=== PATIENT | male | born 1975 | race American Indian/Alaskan Native ===

== ENCOUNTER 2017-02-05 00:08 | Inpatient (IN) | payer SELFPAY ==
[2017-02-05 01:56] LABS: Anion Gap 17 mmol/L; Blood Urea Nitrogen 19 mg/dL (9-20); Calcium 9.1 mg/dL (8.4-10.2); Carbon Dioxide 27 mmol/L (22-30); Glucose 88 mg/dL (75-100); Potassium 4.1 mmol/L (3.6-5.0); Sodium 139 mmol/L (137-145)
[2017-02-05 02:13] LABS: Basophils % (Auto) 0.5 % (0.0-1.8); Eosinophils % (Auto) 2.2 % (0.0-4.3); Hematocrit 44.8 % (35.5-45.6); Hemoglobin 14.9 gm/dl (11.8-15.2); Mean Corpuscular HGB Conc 33 % (32-34); Mean Corpuscular Hemoglobin 30 pg (28-32); Mean Corpuscular Volume 89 fl (84-94); Platelet Count 177 K/mm3 (140-440); Red Blood Count 5.01 M/mm3 (3.65-5.03); Red Cell Distribution Width 15.4 % (13.2-15.2); White Blood Count 4.2 K/mm3 (4.5-11.0)
[2017-02-05 06:50] LABS: Bilirubin,Urine NEG (Negative); Blood,Urine NEG (Negative); Ketones,Urine TR mg/dL (Negative); Leukocyte Esterase,Urine NEG (Negative); Mucus,Urine 2+ /HPF; Nitrite,Urine NEG (Negative); Protein,Urine <15 mg/dL mg/dL (Negative); Urobilinogen,Urine < 2.0 mg/dL (<2.0)
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
[2017-02-05] MEDS ORDERED: BABY ASPIRIN PO ONE (09:19)
--- NOTE | 2017-02-05 09:39 | XRay Report ---
ROUTINE CHEST, TWO VIEWS: Chest pain. PA and lateral views demonstrate the heart and mediastinal contour to be of normal size and shape. The lungs are clear and fully expanded and the soft tissues and bony structures are normal. IMPRESSION: Normal study.
[2017-02-05] MEDS ORDERED: TYLENOL PO PRN (10:22)
[2017-02-05] MEDS ORDERED: MORPHINE IV PRN (10:22)
[2017-02-05] MEDS ORDERED: DULCOLAX PR PRN (10:22)
[2017-02-05] MEDS ORDERED: ZOFRAN IM PRN (10:25)
[2017-02-05] MEDS ORDERED: NITROSTAT SL PRN (10:26)
--- NOTE | 2017-02-05 10:55 | Admit Criteria Form ---
Admission Criteria Documentation: CARDIOLOGY GRG Clinical Indications for Admission to Inpatient Care ( Place 'X' for any and all applicable criteria): Hospital admission is needed for appropriate care of the patient because of ANY ONE of the following (1): [ ] I. Hemodynamic instability as indicated by ALL of the following (1)(2)(3) (4)(5) [ ]a) Vital signs or other findings not as expected for chronic patient condition or baseline [ ]b) Instability indicated by ANY ONE of the following: [ ]i) Hypotension [ ]ii) Symptomatic Tachycardia unresponsive to treatment ( e.g., analgesia, fluids, sedation as indicated) [ ]iii) Inadequate perfusion indicated by ANY ONE of the following: [ ] 1) Lactic acidosis (> 2 mmol/L) [ ] 2) New abnormal capillary refill (> 3 seconds) [ ] 3) Reduced urine output [ ] 4) New altered mental status [ ]iv) Orthostatic vital sign changes unresponsive to treatment (e.g., fluids) [ ]v) IV inotropic or vasopressor medication required to maintain adequate blood pressure or perfusion [ ] II. Severe heart failure as indicated by ANY ONE of the following(17)(18) [ ]a) Respiratory distress [ ]b) Hypotension [ ]c) Anasarca (refractory to outpatient therapy) [ ]d) Cardiac arrhythmias of immediate concern [ ]e) Myocardial ischemia [ ] III. Cardiac arrhythmias or findings of immediate concern indicated by ANY ONE of the following (19)(20): [ ] a) Heart rhythms that are inherently dangerous or unstable indicated by ANY ONE of the following (21)(22)(23): [ ] i) Resuscitated ventricular fibrillation or cardiac arrest [ ] ii) Ventricular escape rhythm [ ] iii) Sustained ventricular tachycardia (30 seconds or more of ventricular rhythm at greater than 100 beats per minute) [ ] iv) Nonsustained ventricular tachycardia and ANY ONE of the following: [ ] 1) Suspected cardiac ischemia as cause or consequence of ventricular tachycardia [ ] 2) In setting of acute myocarditis [ ] b) Unstable cardiac conduction defects indicated by ANY ONE of the following(23)(24)(25) [ ] i) Type II second-degree atrioventricular block [ ]ii) Third-degree atrioventricular block [ ]iii) New-onset left bundle branch block with suspected myocardial ischemia [ ]c) Any heart rhythm and ANY ONE of the following (21)(22)(26)(27) (28) [ ] i) Continuous long-term ECG monitoring needed (e.g., initiation of drug requiring monitoring for more than 24 hours) [ ] ii) Patient has automatic implanted cardioverter defibrillator that is repeatedly firing, malfunctioning, or in need of immediate adjustment of settings beyond the scope of ambulatory or observation care [ ]d) Heart rhythms of concern due to ANY ONE of the following: [ ] i) Hypotension [ ] ii) Respiratory distress [ ] iii) Association with other significant symptoms (e.g., bradycardia with syncope or ongoing dizziness, supraventricular tachycardia with chest pain (14)(15)(17) [ ] IV. Monitoring for cardiac contusion beyond the scope of observation care needed [A](30)(31)(32) [ ] V. Surgical or device complication (e.g., valve replacement complication , pacemaker dysfunction) (35)(41)(44)(45)(46) [ ] . Inpatient palliative care needed. [B](49) Also use Inpatient Palliative Care Criteria [ ] VII. Nonbacterial thrombotic (marantic) endocarditis (36)(43)(47)(48) [X] VIII. Cardiology condition, symptom, or finding for which emergency and observation care has failed or are not considered appropriate. [ ] IX. Acute valvular disease requiring inpatient as indicated by ANY ONE of the following (41) [ ]a) Acute valvular regurgitation (42) [ ]b) Noninfectious valvulitis (43) [ ]c) Obstructive valve thrombosis [ ]d) Paravalvular leak [ ]e) Other significant valvular disorder remaining after emergency or observation level of care (as appropriate) [ ]X. Pericardial disease requiring inpatient treatment as indicated by ANY ONE of the following (33)(34)(35)(36)(37) [ ]a) Suspected tamponade (38)(39)(40) [ ]b) Hemopericardium [ ]c) Other significant pericardial disorder remaining after emergency or observation level of care (as appropriate) [ ] XI. Cardiac ischemia beyond scope of emergency and observation care. [ ] XII. Hypertension requiring inpatient treatment as indicated by ANY ONE of the following (6)(7)(8) [ ]a) SBP greater than 220 mm Hg or DBP greater than 120 mmHg despite treatment [ ]b) SBP greater than 140 mm Hg or DBP greater than 100 mm Hg with evidence of acute end organ damage as indicated by ANY ONE of the following [ ] i) Altered mental status [ ] ii) Acute renal failure as indicated by new onset of ANY ONE of the following (9)(10)(11)(12)(13) [ ]1) 3-fold rise in serum creatinine from baseline [ ]2) Serum creatinine greater than 4 mg/dL ( 354 micromoles/L) with acute rise greater than 0.5 mg/dL (44.2 micromoles/L) [ ]3) Reduction of more than 75% in estimated glomerular filtration rate from baseline [ ]4) Estimated glomerular filtration rate less than 35 mL/min/1.73m2 (0.59 mL/sec/1.73m2) in child up to 18 years of age [ ]5) Cessation of urine output indicated by ALL of the following [ ]A. Adequate volume status [ ]B. Inadequate urine output as indicated by ANY ONE of the following [ ]a. Urine output less than 0.3 mL/kg/hr for 24 hours [ ]b. Anuria (urine output less than 0.1 mL/kg/hr) for 12 hours [ ] iii) Aortic dissection [ ] iv) Myocardial Ischemia [ ] v) Left ventricular heart failure [ ]vi) Retinal Hemorrhage [ ]vii) Other significant finding [ ]c) Hypertension in child requiring inpatient treatment as indicated by ALL of the following(14)(15)(16) [ ] i) Outpatient treatment not effective, not available, or not appropriate [ ]ii) SBP or DBP greater than 95th percentile for age [ ]iii) Evidence of acute end organ damage as indicated by ANY ONE of the following [ ]1) Altered mental status [ ]2) Acute renal failure as indicated by new onset of ANY ONE of the following(9)(10)(11)(12)(13) [ ]A. 3-fold rise in serum creatinine from baseline [ ]B. Serum creatinine greater than 4 mg/dL (354 micromoles/L) with acute rise greater than 0.5 mg/dL (44.2 micromoles/L) [ ]C. Reduction of more than 75% in estimated glomerular filtration rate from baseline [ ]D. Estimated glomerular filtration rate less than 35 mL/min/1.73m2 (0.59 mL/sec/1.73m2) in child up to 18 years of age [ ]E. Cessation of urine output indicated by ALL of the following [ ]a. Adequate volume status [ ]b. Inadequate urine output as indicated by ANY ONE of the following [ ]i) Urine output less than 0.3 mL/kg/hr for 24 hours [ ]ii) Anuria ( urine output less than 0.1 mL/kg/hr) for 12 hours [ ]3) Severe headache [ ]4) Visual disturbance [ ]5) Retinal hemorrhage [ ]6) Other significant finding [ ]XIII. Complications of transplanted heart indicated by ANY ONE of the following(61): [ ]a) Acute graft rejection requiring inpatient management (eg, intravenous immunosuppression)(62)(63) [ ]b) Acute graft heart failure indicated by ANY ONE of the following(64): [ ]i) Hemodynamic instability [ ]ii) Cardiac arrhythmias of immediate concern [ ]iii) Pulmonary edema that is very severe (eg, mechanical ventilation needed, imminent or likely, need for 100% oxygen to keep oxygen saturation above 90%) [ ]iv) Pulmonary edema that is persistent as indicated by ALL of the following: [ ]1) New need for oxygen therapy to keep oxygen saturation above 90% (or increased FiO2 need from baseline) [ ]2) Has not improved sufficiently with emergency department or observation care IV diuretics or other heart failure treatments[E] [ ]v) Altered mental status that is severe or persistent [ ]vi) Increased creatinine (new on laboratory test) with reduction of more than 50% in estimated glomerular filtration rate from baseline [ ]vii) Progressively (ongoing) rising creatinine (known from past laboratory test) with reduction of more than 25% in estimated glomerular filtration rate from baseline [ ]viii) Acute renal failure [ ]ix) Acute peripheral ischemia (eg, examination shows pulseless, cool, mottled, or cyanotic extremity) [ ]x) Pulmonary artery catheter monitoring needed [ ]xi) Other sign or symptom of heart failure requiring inpatient treatment (ie, too severe or not responsive to outpatient and observation care treatment) [ ]c) Infection requiring inpatient management (eg, Hemodynamic instability, need for intravenous antimicrobial treatment)(66)(67)(68)(69)(70) [ ]d) Cardiac allograft vasculopathy requiring inpatient management ( eg evidence of cardiac ischemia)(71) [ ]e) Other complication of transplanted heart (eg, stroke, severe pulmonary hypertension, severe valvular dysfunction) requiring inpatient management(72) The original [facility] content created by [facility] has been revised. The portions of the content which have been revised are identified through the use of italic text or in bold, and [facility] has neither reviewed nor approved the modified material. All other unmodified content is copyright [facility]. Please see references footnoted in the original [facility] edition 2016 Admission Criteria Met: Yes
--- NOTE | 2017-02-05 10:59 | History and Physical Report ---
<CONOR CALLE - Last Filed: 02/05/17 13:29> History of Present Illness Date of examination: 02/05/17 Date of admission: 02/05/2017 History of present illness: Patient is a 41 years -Maldivian male with no past medical history, who presented to the ED complaining of right chest pain. He states that the pain began last night and consisted of a dull pain. The pain was located over his left chest area somewhat near his shoulder; non radiating. The onset of pain came while the patient was at home watching TV. The pain is a dull, preceded by a short interval of a sharp pain.The sharp pain lasted around 1-2 seconds. The patient did experience some muscle stiffness in his left arm and leg after the pain ceased.He continued to have several episodes of the pain throughout the night, so he decided to call 911 and they brought him to the emergency department. The painful episodes did not increase in intensity or severity during this time. Patient was given nitroglycerin, ASA and which he claims helped alleviate the pain somewhat. All There is no aggravating factor. The patient currently rated his pain a score of 1/10. He experienced shortness of breath and diaphoresis during these episodes of pain. He denies nausea vomiting. He has never had chest pain in the past. Past History Past Medical History: No medical history, other (kidney stones) Past Surgical History: No surgical history (I) Social history: no significant social history, smoking. denies: alcohol abuse Family history: diabetes, hypertension Medications and Allergies Allergies Allergy/AdvReac Type Severity Reaction Status Date / Time No Known Allergies Allergy Unverified 02/05/17 00:35 Home Medications Medication Instructions Recorded Confirmed Last Taken Type No Known Home Medications [No 02/05/17 02/05/17 Unknown History Reported Home Medications] Active Meds: Active Medications Acetaminophen (Tylenol) 650 mg PO Q4H PRN PRN Reason: Pain MILD(1-3)/Fever >100.5/BRYSON Aspirin (Aspirin) 325 mg PO QDAY ROB Bisacodyl (Dulcolax) 10 mg [place] QDAY PRN PRN Reason: Constipation unrelieved by MOM Enoxaparin Sodium (Lovenox) 40 mg SUB-Q QDAY ROB Dextrose/Sodium Chloride (D5ns) 1,000 mls @ 75 mls/hr IV DIRECT ROB Morphine Sulfate (Morphine) 2 mg IV Q4H PRN PRN Reason: Pain, Moderate (4-6) Nitroglycerin (Nitrostat) 0.4 mg SL .Q5MIN PRN PRN Reason: Chest Pain Ondansetron HCl (Zofran) 4 mg IM Q4H PRN PRN Reason: Nausea And Vomiting Review of Systems Constitutional: sweats, no weight loss, no weight gain, no fever Ears, nose, mouth and throat: no ear pain, no ear discharge, no tinnitis, no decreased hearing Cardiovascular: chest pain, shortness of breath, no orthopnea, no palpitations, no syncope, no lightheadedness, no dyspnea on exertion, no paroxysmal nocturnal dyspnea Respiratory: shortness of breath, no cough with sputum, no excessive sputum, no hemoptysis, no dyspnea on exertion, no sleep apnea Gastrointestinal: no nausea, no vomiting, no diarrhea, no constipation Genitourinary Male: no hematuria, no flank pain, no discharge, no urinary hesitancy Rectal: no pain, no incontinence, no bleeding Integumentary: no rash, no pruritis, no redness Neurological: no transient paralysis, no paralysis, no weakness, no parathesias Psychiatric: no anxiety, no memory loss, no change in sleep habits, no sleep disturbances Endocrine: no cold intolerance, no heat intolerance, no polyphagia, no excessive thirst Hematologic/Lymphatic: no easy bruising, no easy bleeding Allergic/Immunologic: no urticaria, no allergic rhinitis, no wheezing Exam - Constitutional Vitals: Temp Pulse Resp BP Pulse Ox 98.1 F 55 L 9 L 123/90 100 02/05/17 00:41 02/05/17 08:51 02/05/17 08:51 02/05/17 08:51 02/05/17 08:51 General appearance: Present: no acute distress - EENT Eyes: Present: PERRL, EOM intact ENT: hearing intact, clear oral mucosa, dentition normal - Neck Neck: Present: supple, normal ROM - Respiratory Respiratory effort: normal Respiratory: bilateral: CTA - Cardiovascular Heart rate: 54 (bradycardia) - Extremities Extremities: no ischemia Peripheral Pulses: within normal limits - Abdominal General gastrointestinal: Present: soft, non-tender Male genitourinary: Present: deferred - Rectal Rectal Exam: deferred - Integumentary Integumentary: Present: clear, warm, dry - Musculoskeletal Musculoskeletal: strength equal bilaterally - Psychiatric Psychiatric: appropriate mood/affect - Neurologic Neurologic: CNII-XII intact - Allied Health Allied health notes reviewed: nursing Results - Labs CBC & Chem 7: 02/05/17 01:08 02/05/17 01:08 Labs: Laboratory Last Values WBC 4.2 K/mm3 (4.5-11.0) L 02/05/17 01:08 RBC 5.01 M/mm3 (3.65-5.03) 02/05/17 01:08 Hgb 14.9 gm/dl (11.8-15.2) 02/05/17 01:08 Hct 44.8 % (35.5-45.6) 02/05/17 01:08 MCV 89 fl (84-94) 02/05/17 01:08 MCH 30 pg (28-32) 02/05/17 01:08 MCHC 33 % (32-34) 02/05/17 01:08 RDW 15.4 % (13.2-15.2) H 02/05/17 01:08 Plt Count 177 K/mm3 (140-440) 02/05/17 01:08 Lymph % (Auto) 53.1 % (13.4-35.0) H 02/05/17 01:08 [place] % (Auto) 8.3 % (0.0-7.3) H 02/05/17 01:08 Eos % (Auto) 2.2 % (0.0-4.3) 02/05/17 01:08 Baso % (Auto) 0.5 % (0.0-1.8) 02/05/17 01:08 Lymph # 2.3 K/mm3 (1.2-5.4) 02/05/17 01:08 [place] # 0.4 K/mm3 (0.0-0.8) 02/05/17 01:08 Eos # 0.1 K/mm3 (0.0-0.4) 02/05/17 01:08 Baso # 0.0 K/mm3 (0.0-0.1) 02/05/17 01:08 Seg Neutrophils % 35.9 % (40.0-70.0) L 02/05/17 01:08 Seg Neutrophils # 1.5 K/mm3 (1.8-7.7) L 02/05/17 01:08 Sodium 139 mmol/L (137-145) 02/05/17 01:08 Potassium 4.1 mmol/L (3.6-5.0) 02/05/17 01:08 Chloride 99.0 mmol/L (98-107) 02/05/17 01:08 Carbon Dioxide 27 mmol/L (22-30) 02/05/17 01:08 Anion Gap 17 mmol/L 02/05/17 01:08 BUN 19 mg/dL (9-20) 02/05/17 01:08 Creatinine 1.0 mg/dL (0.8-1.5) 02/05/17 01:08 Estimated GFR > 60 ml/min 02/05/17 01:08 BUN/Creatinine Ratio 19.00 % 02/05/17 01:08 Glucose 88 mg/dL (75-100) 02/05/17 01:08 Calcium 9.1 mg/dL (8.4-10.2) 02/05/17 01:08 Troponin T < 0.010 ng/mL (0.00-0.029) 02/05/17 06:45 Urine Color Yellow (Yellow) 02/05/17 06:32 Urine Turbidity Clear (Clear) 02/05/17 06:32 Urine pH 5.0 (5.0-7.0) 02/05/17 06:32 Ur Specific [place] 1.025 (1.003-1.030) 02/05/17 06:32 Urine Protein <15 mg/dl mg/dL (Negative) 02/05/17 06:32 Urine Glucose (UA) Neg mg/dL (Negative) 02/05/17 06:32 Urine Ketones Tr mg/dL (Negative) 02/05/17 06:32 Urine Blood Neg (Negative) 02/05/17 06:32 Urine Nitrite Neg (Negative) 02/05/17 06:32 Urine Bilirubin Neg (Negative) 02/05/17 06:32 Urine Urobilinogen < 2.0 mg/dL (<2.0) 02/05/17 06:32 Ur Leukocyte Esterase Neg (Negative) 02/05/17 06:32 Urine WBC (Auto) 1.0 /HPF (0.0-6.0) 02/05/17 06:32 Urine RBC (Auto) 1.0 /HPF (0.0-6.0) 02/05/17 06:32 U Epithel Cells (Auto) 1.0 /HPF (0-13.0) 02/05/17 06:32 Hyaline Casts 1 /LPF 02/05/17 06:32 Urine Mucus 2+ /HPF 02/05/17 06:32 - Imaging and Cardiology Chest x-ray: image reviewed (normal study) Assessment and Plan Assessment and plan: Patient is a 41 years -Maldivian male with no past medical history, who presented to the ED complaining of right chest pain. He states that the pain began last night and consisted of a dull pain.He has never had chest pain in the past. Chest x-ray-no focal infiltrates, no pneumothorax. Cardiac enzyme negative and abnormal EKG with Wellens Syndrome. Chest pain We will admit to telemetry EKG #1 demonstrates sinus bradycardia, 51 bpm, normal intervals, normal axis, nonspecific ST and MLD in anteroseptal leads V3 and V4 and EKG# 2 demonstrates sinus bradycardia, 43 beats per minute, normal intervals, normal axis, basic T- wave in V3, not consistent with STEMI We will repeat serial cardiac enzymes and follow cardiac enzymes troponin. Fluid hydration Stress test Lexiscan ordered Start on aspirin Morphine ordered for pain Bradycardia Patient appears to be athletics but echocardiogram ordered Cardiology consulted Dehydration IV fluid hydration Abnormal EKG Repeat EKG Repeat cardiac enzymes Stress test ordered echocardiogram Cardiology consulted DVT prophylaxis Lovenox patient Full code <RYAN POST R - Last Filed: 02/05/17 13:39> History of Present Illness Date of admission: 02/05/17 10:22 Chief complaint: Chest pain Medications and Allergies Active Meds: Active Medications Acetaminophen (Tylenol) 650 mg PO Q4H PRN PRN Reason: Pain MILD(1-3)/Fever >100.5/BRYSON Aspirin (Aspirin) 325 mg PO QDAY ROB Bisacodyl (Dulcolax) 10 mg [place] QDAY PRN PRN Reason: Constipation unrelieved by MOM Enoxaparin Sodium (Lovenox) 40 mg SUB-Q QDAY ROB Dextrose/Sodium Chloride (D5ns) 1,000 mls @ 75 mls/hr IV DIRECT ROB Morphine Sulfate (Morphine) 2 mg IV Q4H PRN PRN Reason: Pain, Moderate (4-6) Nitroglycerin (Nitrostat) 0.4 mg SL .Q5MIN PRN PRN Reason: Chest Pain Ondansetron HCl (Zofran) 4 mg IM Q4H PRN PRN Reason: Nausea And Vomiting Exam - Constitutional Vitals: Temp Pulse Resp BP Pulse Ox 98.1 F 54 L 14 117/81 100 02/05/17 00:41 02/05/17 10:41 02/05/17 10:41 02/05/17 10:41 02/05/17 10:41 Results - Labs CBC & Chem 7: 02/05/17 01:08 02/05/17 01:08 Labs: Laboratory Last Values WBC 4.2 K/mm3 (4.5-11.0) L 02/05/17 01:08 RBC 5.01 M/mm3 (3.65-5.03) 02/05/17 01:08 Hgb 14.9 gm/dl (11.8-15.2) 02/05/17 01:08 Hct 44.8 % (35.5-45.6) 02/05/17 01:08 MCV 89 fl (84-94) 02/05/17 01:08 MCH 30 pg (28-32) 02/05/17 01:08 MCHC 33 % (32-34) 02/05/17 01:08 RDW 15.4 % (13.2-15.2) H 02/05/17 01:08 Plt Count 177 K/mm3 (140-440) 02/05/17 01:08 Lymph % (Auto) 53.1 % (13.4-35.0) H 02/05/17 01:08 [place] % (Auto) 8.3 % (0.0-7.3) H 02/05/17 01:08 Eos % (Auto) 2.2 % (0.0-4.3) 02/05/17 01:08 Baso % (Auto) 0.5 % (0.0-1.8) 02/05/17 01:08 Lymph # 2.3 K/mm3 (1.2-5.4) 02/05/17 01:08 [place] # 0.4 K/mm3 (0.0-0.8) 02/05/17 01:08 Eos # 0.1 K/mm3 (0.0-0.4) 02/05/17 01:08 Baso # 0.0 K/mm3 (0.0-0.1) 02/05/17 01:08 Seg Neutrophils % 35.9 % (40.0-70.0) L 02/05/17 01:08 Seg Neutrophils # 1.5 K/mm3 (1.8-7.7) L 02/05/17 01:08 Sodium 139 mmol/L (137-145) 02/05/17 01:08 Potassium 4.1 mmol/L (3.6-5.0) 02/05/17 01:08 Chloride 99.0 mmol/L (98-107) 02/05/17 01:08 Carbon Dioxide 27 mmol/L (22-30) 02/05/17 01:08 Anion Gap 17 mmol/L 02/05/17 01:08 BUN 19 mg/dL (9-20) 02/05/17 01:08 Creatinine 1.0 mg/dL (0.8-1.5) 02/05/17 01:08 Estimated GFR > 60 ml/min 02/05/17 01:08 BUN/Creatinine Ratio 19.00 % 02/05/17 01:08 Glucose 88 mg/dL (75-100) 02/05/17 01:08 Calcium 9.1 mg/dL (8.4-10.2) 02/05/17 01:08 Troponin T < 0.010 ng/mL (0.00-0.029) 02/05/17 06:45 Urine Color Yellow (Yellow) 02/05/17 06:32 Urine Turbidity Clear (Clear) 02/05/17 06:32 Urine pH 5.0 (5.0-7.0) 02/05/17 06:32 Ur Specific [place] 1.025 (1.003-1.030) 02/05/17 06:32 Urine Protein <15 mg/dl mg/dL (Negative) 02/05/17 06:32 Urine Glucose (UA) Neg mg/dL (Negative) 02/05/17 06:32 Urine Ketones Tr mg/dL (Negative) 02/05/17 06:32 Urine Blood Neg (Negative) 02/05/17 06:32 Urine Nitrite Neg (Negative) 02/05/17 06:32 Urine Bilirubin Neg (Negative) 02/05/17 06:32 Urine Urobilinogen < 2.0 mg/dL (<2.0) 02/05/17 06:32 Ur Leukocyte Esterase Neg (Negative) 02/05/17 06:32 Urine WBC (Auto) 1.0 /HPF (0.0-6.0) 02/05/17 06:32 Urine RBC (Auto) 1.0 /HPF (0.0-6.0) 02/05/17 06:32 U Epithel Cells (Auto) 1.0 /HPF (0-13.0) 02/05/17 06:32 Hyaline Casts 1 /LPF 02/05/17 06:32 Urine Mucus 2+ /HPF 02/05/17 06:32 Assessment and Plan Assessment and plan: I have personally seen and examined the patient. I reviewed the Nurse Practitioner's note and agree with the assessment and plan Stress test in a.m. Follow-up urine drug screen
[2017-02-05] MEDS ORDERED: D5NS 1,000 ML IV SCH (11:00)
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
[2017-02-06 06:12] LABS: Hematocrit 43.5 % (35.5-45.6); Hemoglobin 14.5 gm/dl (11.8-15.2); Mean Corpuscular HGB Conc 33 % (32-34); Mean Corpuscular Hemoglobin 30 pg (28-32); Mean Corpuscular Volume 91 fl (84-94); Platelet Count 166 K/mm3 (140-440); Red Blood Count 4.81 M/mm3 (3.65-5.03); Red Cell Distribution Width 15.1 % (13.2-15.2); White Blood Count 3.5 K/mm3 (4.5-11.0)
[2017-02-06 06:31] LABS: Anion Gap 14 mmol/L; Blood Urea Nitrogen 17 mg/dL (9-20); Calcium 8.7 mg/dL (8.4-10.2); Carbon Dioxide 27 mmol/L (22-30); Cholesterol 169 mg/dL (50-199); Glucose 97 mg/dL (75-100); HDL Cholesterol 55 mg/dL (40-59); LDL Cholesterol,Direct 103 mg/dL (50-130); Potassium 4.3 mmol/L (3.6-5.0); Sodium 139 mmol/L (137-145); Triglycerides 55 mg/dL (2-149)
[2017-02-06] MEDS ORDERED: LEXISCAN IV ONE ×2 (09:22→09:24)
[2017-02-06] MEDS ORDERED: ASPIRIN PO SCH (10:00)
[2017-02-06] MEDS ORDERED: LOVENOX SUB-Q SCH (10:00)
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
[2017-02-06 12:45] VITALS: BP 132/64
--- NOTE | 2017-02-06 13:25 | Event Note ---
Date: 02/06/17 Lexiscan MPI stress test this AM negative for ischemia. Currently stable cardiac status. Pt may discharge home from cardiology standpoint. Follow up in our office with Melissa Be NP, within 2 weeks of hospital discharge ([phone]). Kia BENSON NP / DR. REES
--- NOTE | 2017-02-07 03:23 | Treadmill Report ---
MYOCARDIAL PERFUSION IMAGING Resting myocardial perfusion images revealed homogeneous radioisotope uptake. On post-Lexiscan, there was uniform radioisotope activity. Ejection fraction was 59%. IMPRESSION: 1. Negative for any ischemia. 2. Good left ventricular function. JOB# [id number] MATHEUS/JEANNINE
== END 2017-02-06 19:30 | disposition home or self-care (01) | DRG 313 ==
LOC: ED 00:08 → 4A 10:22
PROVIDERS: ADMIT Internal Medicine; ATTEND Hospitalist
DX: R07.89 Other chest pain (principal); R94.31 Abnormal electrocardiogram [ECG] [EKG]; Z83.3 Family history of diabetes mellitus; Z82.49 Family history of ischemic heart disease and other diseases of the circulatory system; Z87.442 Personal history of urinary calculi; F17.210 Nicotine dependence, cigarettes, uncomplicated; R00.1 Bradycardia, unspecified; E86.0 Dehydration; I10 Essential (primary) hypertension; F12.90 Cannabis use, unspecified, uncomplicated
CPT/HCPCS: 36415; 71020; 78452; 80048; 80061; 81001; 84484; 85025; 85027; 93005; 93010; 93017; 93306; 99406; A9502; J2785